=== PATIENT | female | born 1960 | race Caucasian/White ===

== ENCOUNTER 2017-03-12 09:36 | Emergency (ER) | payer OTHER ==
[2017-03-12 10:47] VITALS: BP 136/91
--- NOTE | 2017-03-12 10:54 | UC ---
Knee Pain HPI - HPI Summary HPI Summary: 56 yo female slipped and fell on left knee yesterday C/O left knee>>>left hip pain able to bear wt with limp denies other injury - History of Current Complaint Chief Complaint: UCLowerExtremity Stated Complaint: FELL KNEE INJURY Time Seen by Provider: 03/12/17 10:31 Hx Obtained From: Patient Onset/Duration: Sudden Onset, Lasting Hours Severity Initially: Moderate Severity Currently: Moderate Pain Intensity: 7 Pain Scale Used: 0-10 Numeric Character: Dull, Aching, Throbbing Aggravating Factor(s): Movement, Weight Bearing Alleviating Factor(s): Rest Associated Signs And Symptoms: Positive: Swelling Able to Bear Weight: Yes - Allergies/Home Medications Allergies/Adverse Reactions: Allergies Allergy/AdvReac Type Severity Reaction Status Date / Time No Known Allergies Allergy Verified 03/12/17 10:47 PMH/Surg Hx/FS Hx/Imm Hx Previously Healthy: Yes - peripheral vascular disease Endocrine History: Dyslipidemia Cardiovascular History: Hypertension Other History Of: Negative For: Anticoagulant Therapy - Surgical History Surgical History: Yes Surgery Procedure, Year, and Place: uterine ablation, tubal ligation, bladder sling, tonsillectomy, tubal reanastamosis, hernia surgery x3-inguinal and hiatal-mesh, placenta abruption--, rectoceal and cystoceal, whipple. procedure 06/15/12. 11/30/2014 - RIGHT SIDED GROIIN CATH WHICH SHOWED 60% BLOCKAGE BUT THEY CAN'T DO ANYTING BECAUSE OF HER PRINZMETAL'S ANGINA. - Family History Known Family History: Positive: Hypertension - Social History Alcohol Use: None Substance Use Type: None Smoking Status (MU): Heavy Every Day Tobacco Smoker Type: Cigarettes Amount Used/How Often: 1 PPD Length of Time of Smoking/Using Tobacco: 20+ YEARS Have You Smoked in the Last Year: Yes Household Exposure Type: Cigarettes - Immunization History Most Recent Influenza Vaccination: unknown Most Recent Tetanus Shot: years ago Most Recent Pneumonia Vaccination: years ago Review of Systems Constitutional: Negative Skin: Negative Eyes: Negative ENT: Negative Respiratory: Negative Cardiovascular: Negative Gastrointestinal: Negative Genitourinary: Negative Motor: Negative Neurovascular: Negative Musculoskeletal: Arthralgia Neurological: Negative Psychological: Negative Is Patient Immunocompromised?: No All Other Systems Reviewed And Are Negative: Yes Physical Exam Triage Information Reviewed: Yes Appearance: Well-Appearing, No Pain Distress, Well-Nourished Vital Signs: Initial Vital Signs Temp 99 F 03/12/17 10:36 Pulse 75 03/12/17 10:36 Resp 18 03/12/17 10:36 BP 136/91 03/12/17 10:36 Pulse Ox 98 03/12/17 10:36 Vital Signs Reviewed: Yes Eyes: Positive: Conjunctiva Clear ENT: Negative: Nasal congestion, Nasal drainage, Trismus, Muffled voice, Hoarse voice Neck: Positive: Supple Respiratory: Positive: Lungs clear, Normal breath sounds, No respiratory distress, No accessory muscle use Cardiovascular: Positive: RRR, No Murmur Musculoskeletal: Positive: Other: - left hip- tender greater troch left knee- tender patella/tender medial joint line/pain with full extension/effusion Neurological: Positive: Alert Skin Exam: Normal Diagnostics - Radiology No standard instances Xray Interpretation: No Acute Changes Radiology Interpretation Completed By: Radiologist Knee Pain Course/Dx - Differential Dx/Diagnosis Provider Diagnoses: left knee sprain? torn meniscus. left hip contusion Discharge - Discharge Plan Condition: Stable Disposition: HOME Patient Education Materials: Swollen Knee Joint (ED) Forms: *Work Release Referrals: Irina Gutierrez MD [Medical Doctor] - As Soon As Possible Additional Instructions: rest elevate ice knee immobilizer see orthopedist in follow up continue advil for pain
--- NOTE | 2017-03-12 11:36 | RAD ---
HISTORY: Left knee injury COMPARISONS: None VIEWS: 4, Frontal, lateral, axial, and oblique views of the left knee FINDINGS: BONE DENSITY: There is diffuse osteopenia. BONES: There is no displaced fracture. JOINTS: There is mild tricompartment osteoarthritis. There is a small suprapatellar joint effusion. There is no lipohemarthrosis ALIGNMENT: There is no dislocation. SOFT TISSUES: Unremarkable. OTHER FINDINGS: None. IMPRESSION: 1. OSTEOPENIA. 2. MILD OSTEOARTHRITIS. 3. JOINT EFFUSION. 4. NO ACUTE OSSEOUS INJURY. IF SYMPTOMS PERSIST, RECOMMEND REPEAT IMAGING
--- NOTE | 2017-03-12 11:40 | RAD ---
HISTORY: Fall, with hip pain COMPARISONS: None VIEWS: 3, Frontal view of the pelvis with frontal and frog-leg views of the left hip FINDINGS: BONE DENSITY: Normal. BONES: There is no displaced fracture. JOINTS: There is mild osteoarthritis of the hips and SI joints. ALIGNMENT: There is no dislocation. SOFT TISSUES: Unremarkable. OTHER FINDINGS: None. IMPRESSION: NO RADIOGRAPHIC EVIDENCE FOR HIP FRACTURE. X-RAYS MAY BE NEGATIVE WITH NONDISPLACED HIP FRACTURE, IF THERE IS PERSISTENT CLINICAL CONCERN, RECOMMEND CONSIDERATION OF MRI. IN THE SETTING OF CONTRAINDICATION TO MRI OR LIMITATION IN EMERGENT ACCESS TO MRI, CT WOULD BE SUGGESTED.
== END 2017-03-12 12:06 | disposition home or self-care (01) ==
LOC: UCEAST 09:36
DX: S83.92XA Sprain of unspecified site of left knee, initial encounter (principal); S70.02XA Contusion of left hip, initial encounter; F17.210 Nicotine dependence, cigarettes, uncomplicated; W01.0XXA Fall on same level from slipping, tripping and stumbling without subsequent striking against object, initial encounter; Y92.9 Unspecified place or not applicable; I73.9 Peripheral vascular disease, unspecified; E78.5 Hyperlipidemia, unspecified; I10 Essential (primary) hypertension; I20.1 Angina pectoris with documented spasm
CPT/HCPCS: 99213; G0463

== ENCOUNTER 2017-04-12 14:59 | Emergency (ER) | payer OTHER ==
[2017-04-12 16:07] LABS: ABS Basophils 0.1 10^3/ul (0-0.2); ABS Eosinophils 0.2 10^3/ul (0-0.6); ABS Lymphocytes 1.9 10^3/ul (1.0-4.8); ABS Monocytes 0.6 10^3/ul (0-0.8); ABS Neutrophils 7.2 10^3/ul (1.5-7.7); ABS Nucleated RBC 0 10^3/ul; Eosinophil % 2.3 % (0-6); Hematocrit 35 % (35-47); Hemoglobin 11.6 g/dl (12.0-16.0); Lymphocyte % 19.1 % (25-47); Mean Corpuscular HGB Conc 33 g/dl (31-36); Mean Corpuscular Hemoglobin 28 pg (27-31); Mean Corpuscular Volume 85 fL (80-97); Mean Platelet Volume 9 um3 (7.4-10.4); Nucleated Red Blood Cells % 0; Platelet Count 231 10^3/ul (150-450); Red Blood Count 4.13 10^6/ul (4.0-5.4); Red Cell Distribution Width 15 % (10.5-15); White Blood Count 10.2 10^3/ul (3.5-10.8)
[2017-04-12 16:18] LABS: INR 1.01 (0.77-1.02)
[2017-04-12 16:24] LABS: EGFR Non-African American 70.6 (>60)
--- NOTE | 2017-04-12 16:25 | RAD ---
Indication: Dizziness. CT of the brain was performed without IV contrast. Ventricular structures are midline. No midline shift is noted. The extra-axial spaces are unremarkable. There is no evidence of intracranial mass or hemorrhage. No other high or low density lesions are identified. Air-fluid level is noted in the left maxillary sinus as well as mucosal thickening of the left posterior ethmoid air cells. Mastoid air cells are unremarkable. Bony calvaria is unremarkable. IMPRESSION: No intracranial mass or hemorrhage is noted.
[2017-04-12 17:06] LABS: Urine Appearance Cloudy; Urine Blood Negative (Negative); Urine Color Amber; Urine Ketones Trace (Negative); Urine Protein Negative (Negative); Urine Specific Gravity 1.027 (1.010-1.030); Urine Urobilinogen Negative (Negative)
--- NOTE | 2017-04-12 18:06 | RAD ---
Indication: Dizziness. Single frontal view of the chest performed at 1620 hours was reviewed. Comparison is made with previous exam dated June 21, 2015. No mediastinal shift is noted. Heart is of normal size and configuration. Lung chaney appear clear. IMPRESSION: NO ACTIVE CARDIOPULMONARY DISEASE IS NOTED.
[2017-04-12 19:29] VITALS: BP 113/91
[2017-04-12] MEDS ORDERED: O ndansetron ODT 4MG 2TAB PRPK 4 MG PAK PO ONE (19:35)
--- NOTE | 2017-04-12 23:19 | ED ---
Steve Jeffery Stephanie, scribed for Felicita Leal MD on 04/12/17 at 1558 . Dizziness - HPI Summary HPI Summary: The pt is a 56 y/o F presenting to the ED with c/o dizziness that began today at 15:00. The pt arrived via EMS, found supine on bathroom floor at work ( [employer]). Pt states today she started feeling hot flashes, lightheadedness, productive cough, nausea, diaphoresis, and dizziness, then went to bathroom where she had excessive diarrhea, then had SOB. Pt called for help, and was assisted to ground by witnesses. Pt denies loss of consciousness. - History Of Current Complaint Chief Complaint: EDDizziness Stated Complaint: DIZZINESS,WEAKNESS Time Seen by Provider: 04/12/17 15:38 Hx Obtained From: Patient, Family/Frog Farmer - Onset/Duration: Still Present Timing: Constant Character: Unable To Describe - "like I can pass out" Aggravating Factor(s): Nothing Alleviating Factor(s): Nothing Associated Signs And Symptoms: Positive: Diarrhea, Other: - hot flashes, lightheadedness, productive cough, nausea, diaphoresis, SOB, dizziness - Allergies/Home Medications Allergies/Adverse Reactions: Allergies Allergy/AdvReac Type Severity Reaction Status Date / Time isosorbide [From Imdur] AdvReac Headache Verified 04/12/17 15:32 Home Medications: Home Medications Diltiazem XR EXTEND Releas(NF) [Cartia XR (NF)] 240 mg PO DAILY 04/12/17 [ History Confirmed 04/12/17] Glimepiride (NF) 2 mg PO DAILY 04/12/17 [History Confirmed 04/12/17] Sucralfate SUSP (NF) [Carafate SUSP (NF)] 10 ml PO BID 04/12/17 [History Confirmed 04/12/17] Ursodiol CAP* [Actigall CAP 300 MG*] 500 mg PO BID 04/12/17 [History Confirmed 04/12/17] PMH/Surg Hx/FS Hx/Imm Hx Endocrine/Hematology History: Reports: Hx Diabetes - type2, Other Endocrine/ Hematological Disorders - necrobiosis lipoidica Denies: Hx Anticoagulant Therapy, Hx Systemic Lupus Erythematosus, Hx Thyroid Disease Cardiovascular History: Reports: Hx Angina, Hx Deep Vein Thrombosis - portal vein clot,coumadin, Hx Hypertension, Other Cardiovascular Problems/Disorders - ANGINA Denies: Hx Congestive Heart Failure, Hx Pacemaker/ICD Respiratory History: Reports: Hx Asthma - STILL USES OCCASIONAL INHALER, Hx Chronic Bronchitis, Hx Chronic Obstructive Pulmonary Disease (COPD), Other Respiratory Problems/Disorders - COPD GI History: Reports: Hx Gastroesophageal Reflux Disease, Other GI Disorders - Diarrhea for years (Cancer symptoms) Denies: Hx Ulcer History: Reports: Other Problems/Disorders - UTI, Cystocele Denies: Hx Dialysis, Hx Renal Disease Musculoskeletal History: Reports: Other Musculoskeletal History - DJD,ARTHRITIS Denies: Hx Rheumatoid Arthritis Sensory History: Reports: Hx Contacts or Glasses Opthamlomology History: Reports: Hx Contacts or Glasses Neurological History: Denies: Hx Dementia, Hx Seizures Psychiatric History: Denies: Hx Substance Abuse - Cancer History Cancer Type, 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 procedure 06/15/12. 11/30/2014 - RIGHT SIDED GROIIN CATH WHICH SHOWED 60% BLOCKAGE BUT THEY CAN'T DO ANYTING BECAUSE OF HER PRINZMETAL'S ANGINA. - Immunization History Date of Tetanus Vaccine: UTD Date of Influenza Vaccine: NONE Infectious Disease History: No Infectious Disease History: Denies: Hx Hepatitis, Hx Human Immunodeficiency Virus (HIV), Traveled Outside the [place] in Last 30 Days - Family History Known Family History: Positive: Unknown, Hypertension - Social History Occupation: Employed Part-time Lives: With Family Alcohol Use: None Substance Use Type: Reports: None Smoking Status (MU): Heavy Every Day Tobacco Smoker Type: Cigarettes Amount Used/How Often: 1 PPD Length of Time of Smoking/Using Tobacco: 20+ YEARS Have You Smoked in the Last Year: Yes Review of Systems Positive: Skin Diaphoresis, Other - hot flashes. Negative: Fever Positive: Shortness Of Breath, Cough - productive Positive: Diarrhea, Nausea Neurological: Other - lightheadedness, dizziness All Other Systems Reviewed And Are Negative: Yes Physical Exam - Summary Physical Exam Summary: Appearance: Ill-appearing, pale, moderate pain distress, Well-nourished Skin: Warm, bruises on L inner thigh, bruises on L forearm, not orthostatic Head: Normal Head/Face inspection Eyes: Conjunctiva clear ENT: Normal inspection Neck: Supple, no nodes, no JVD. Respiratory: Lungs clear, Normal breath sounds, no respiratory distress Cardio: RRR, No murmur, pulses normal, brisk capillary refill Abdomen: soft, nontender Bowel sounds: present Musculoskeletal: Strength Intact/ ROM intact. No calf tenderness. No edema. Neuro: Alert, muscle tone normal, facial symmetry, speech normal, sensory/motor intact Psychological: Normal Triage Information Reviewed: Yes Vital Signs On Initial Exam: Initial Vitals Temp Pulse Resp BP Pulse Ox 97.9 F 72 16 101/72 97 04/12/17 15:18 04/12/17 15:18 04/12/17 15:18 04/12/17 15:18 04/12/17 15:18 Vital Signs Reviewed: Yes Diagnostics - Vital Signs Vital Signs Temp Pulse Resp BP Pulse Ox 04/12/17 15:30 71 16 106/72 97 04/12/17 15:24 71 101/72 98 04/12/17 15:22 76 93 04/12/17 15:18 97.9 F 72 16 101/72 97 - Laboratory Result Diagrams: 04/12/17 15:57 04/12/17 15:57 Lab Statement: Any lab studies that have been ordered have been reviewed, and results considered in the medical decision making process. - Radiology CXR Xray Interpretation: No Acute Changes Radiology Interpretation Completed By: Radiologist - NO ACTIVE CARDIOPULMONARY DISEASE IS NOTED. - CT Brain CT Interpretation: No Acute Changes CT Interpretation Completed By: Radiologist - No intracranial mass or hemorrhage is noted. - EKG 15:45 Cardiac Rate: NL EKG Rhythm: Sinus Rhythm - [address] Segment: Non-Specific Ectopy: None EKG Interpretation: nml AVIVCT, nml QTc, and axis is zero EKG Comparison: Other - no change compared to 11/24/14 Dizzy Course/Dx - Diagnoses Provider Diagnoses: Dizziness Discharge - Discharge Plan Condition: Stable Disposition: HOME Prescriptions: Ondansetron ODT TAB* [Zofran 4 MG Odt TAB*] 4 mg PO Q6H PRN #20 tab.odt PRN Reason: Vomiting Patient Education Materials: Dizziness (ED) Referrals: Lily Everett MD [Primary Care Provider] - 1 Day Additional Instructions: We have given you a copy of your labs and xray and CT brain. You were influenza swab negative. We did not find a serious cause of your symptoms today. Please follow up with your doctor in 1-2 days. Return to the ER if you have any new or worsening symptoms. The documentation as recorded by the Steve vargas Stephanie accurately reflects the service I personally performed and the decisions made by , Felicita Leal MD.
== END 2017-04-12 19:43 | disposition home or self-care (01) ==
LOC: ED 14:59
DX: R42 Dizziness and giddiness (principal); F17.210 Nicotine dependence, cigarettes, uncomplicated
CPT/HCPCS: 36415; 70450; 71045; 80053; 80307; 80320; 81003; 81015; 82550; 83605; 83735; 83880; 84443; 84484; 85025; 85379; 85610; 86140; 87086; 87502; 93005; 99283; A9270-GY; G0480

== ENCOUNTER 2018-01-20 18:28 | Emergency (ER) | payer OTHER ==
[2018-01-20 19:23] VITALS: BP 135/85
[2018-01-20] MEDS ORDERED: traMADol TAB* 50 MG PO ONE ×2 (20:53→22:14)
--- NOTE | 2018-01-20 20:54 | UC ---
Upper Extremity HPI - HPI Summary HPI Summary: 57 y/o female presents to the urgent care c/o RT upper extremity pain s/p fall on ice around 1730pm. Pt reports pain she tried to catch herself w/ her RT arm and she landed on her RT elbow and wrist. She has pain is the RT shoulder, elbow and wrist. Pain is worse in the RT elbow since she can't move it . Pain is sharp 8/10 radiating to the forearm and fingers, associated w/ swelling on both elbow and wrist. Mild numbness finger 4th and 5th. sharp and she is unable to move her RT elbow. 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 She can't take any Tylenol or NSAID for pain. She states she unusually takes is Tramadol for pain. pt denies fever, THAO, dizziness, chest pain, abdominal pain, N/V/D - History of Current Complaint Chief Complaint: UCUpperExtremity Stated Complaint: R ARM INJURY Time Seen by Provider: 01/20/18 20:51 Hx Obtained From: Patient Hx Last Menstrual Period: operations specialists ?: No Onset/Duration: Sudden Onset, Lasting Hours - 4 hrs, Still Present Severity Initially: Moderate Severity Currently: Moderate Pain Intensity: 8 Pain Scale Used: 0-10 Numeric Location Of Pain: Is Discrete @ - RT shoulder, RT elbow and RT wrist, Radiates To - fingers Character: Sharp - mainly in the Rt elbow Aggravating Factor(s): Movement - Rt elbow, Lifting - RT elbow, Flexion - RT elbow and RT wrist, Extension, Internal/External Rotation - RT elbow, Abduction - RT elbow Alleviating Factor(s): Ice, Rest Associated Signs And Symptoms: Positive: Swelling, Numbness/Tingling - over finger. Negative: Bruising Related History: Dominant Hand Right - Risk Factors Non-Orthopedic Risk Factor: Negative Septic Arthritis Risk Factor: Negative - Allergies/Home Medications Allergies/Adverse Reactions: Allergies Allergy/AdvReac Type Severity Reaction Status Date / Time isosorbide [From Imdur] AdvReac Headache Verified 01/20/18 19:23 Home Medications: Home Medications Albuterol HFA INHALER* [Ventolin HFA Inhaler*] 1 puff INH Q4H PRN 01/20/18 [ History Confirmed 01/20/18] PMH/Surg Hx/FS Hx/Imm Hx Previously Healthy: Yes Endocrine History: Diabetes Cardiovascular History: Cardiac Disease Other Cardiovascular History: printzmetal angina, Other Cancer History: Dudenal cancer, Carcinoid tumor s/p whipple procedure Other History Of: Negative For: Anticoagulant Therapy - Surgical History Surgical History: Yes Surgery Procedure, Year, and Place: uterine ablation, tubal ligation, bladder sling, tonsillectomy, tubal reanastamosis, hernia surgery x3-inguinal and hiatal-mesh, placenta abruption--, rectocele and cystocele,. Whipple procedure 06/15/12. Biliary stone cholelithiasis. 11/30/2014 - RIGHT SIDED GROIN CATH WHICH SHOWED 60% BLOCKAGE BUT THEY CAN'T DO ANYTHING BECAUSE OF HER PRINZMETAL'S ANGINA. - Family History Known Family History: Positive: Cardiac Disease, Hypertension, Diabetes - Social History Occupation: Employed Full-time Lives: With Family Alcohol Use: None Substance Use Type: None Smoking Status (MU): Heavy Every Day Tobacco Smoker Type: Cigarettes Amount Used/How Often: 1 PPD Length of Time of Smoking/Using Tobacco: 20+ YEARS Have You Smoked in the Last Year: Yes Household Exposure Type: Cigarettes - Immunization History Most Recent Influenza Vaccination: unknown Most Recent Tetanus Shot: years ago Most Recent Pneumonia Vaccination: years ago Review of Systems All Other Systems Reviewed And Are Negative: Yes Constitutional: Positive: Negative Skin: Positive: Other - RT elbos swelling and RT wrist swelling Eyes: Positive: Negative ENT: Positive: Negative Respiratory: Positive: Negative Cardiovascular: Positive: Negative Gastrointestinal: Positive: Negative Genitourinary: Positive: Negative Motor: Positive: Negative Neurovascular: Positive: Negative Musculoskeletal: Positive: Decreased ROM - RT elbow and RT wrist, Other: - RT shoulder, RT elbow and RT wrist pain s/p fall on ice Neurological: Positive: Numbness - over the Rt fingers Psychological: Positive: Negative Is Patient Immunocompromised?: No Physical Exam - Summary Physical Exam Summary: Vital Signs Reviewed: Yes General: well developed, well nourished thin female sitting in the examining table w / mild pain distress/o any apparent distress. Eyes: Positive: Conjunctiva Clear - PERRLA, EOMI, ENT: Positive: Normal ENT inspection, Hearing grossly normal, Pharynx normal, TMs normal - B/L, Uvula midline Neck: Positive: Supple, Nontender, No Lymphadenopathy Respiratory: Positive: Chest non-tender, Lungs clear, Normal breath sounds, No respiratory distress, No accessory muscle use Cardiovascular: Positive: RRR, No Murmur, Pulses Normal, Brisk Capillary Refill Abdomen Description: Positive: Nontender, No Organomegaly, Soft. Negative: CVA Tenderness (R), CVA Tenderness (L) Bowel Sounds: Positive: Present Musculoskeletal: Positive: Strength Intact, The R shoulder is without obvious asymmetry or deformity when compared to the L shoulder. posterior shoulder w/o ecchymosis and bruising, no crepitus. No bony deformity or prominence of humeral head. No erythema, warmth. No Point Tenderness to palpation over the clavicle, or scapula. positive tenderness over Acromioclavicular joint and humeral head with mild swelling, Limited ROM due to pain. No axillary tenderness or lymphadenopathy. RT Elbow: The L elbow is w/o any deformity, w/ moderate soft tissue swelling over the lateral epicondyle when compared to the R elbow. No obvious surface trauma, no ecchymosis, Point tenderness to palpation of the lateral or medial epicondyle, olecranon,and radial head. No epicondylar or axillary lymphadenopathy. Decreased ROM due to pain, Pt holding her elbow w/ other arm. Muscle strength WNL. the R wrist is without obvious asymmetry or deformity when compared to the L wrist. No surface trauma, open wounds, or obvious deformity. No overlying erythema or warmth. No bony crepitus. Soft tissu swelling over the lateral side of the wrist. Point tenderness over the thenar eminence and ventral side of wrist. No scaphoid fullness or tenderness to direct palpation or axial load. Decreased ROM due to pain. Motor/sensory function of ulnar, radial, median nerves intact. Ulnar and radial pulses intact. Neurological: Positive: Alert, Muscle Tone Normal Psychological Exam: Normal Skin Exam: Normal Triage Information Reviewed: Yes Vital Signs: Initial Vital Signs Temp 98.4 F 01/20/18 19:16 Pulse 63 01/20/18 19:16 Resp 16 01/20/18 19:16 BP 135/85 01/20/18 19:16 Pulse Ox 97 01/20/18 19:16 Upper Extremity Course/Dx - Course Course Of Treatment: 57 y/o female presents to the urgent care c/o RT upper extremity pain s/p fall on ice around 1730pm. Pt reports pain she tried to catch herself w/ her RT arm and she landed on her RT elbow and wrist. She has pain is the RT shoulder, elbow and wrist. Pain is worse in the RT elbow since she can't move it . Pain is sharp 8/10 radiating to the forearm and fingers, associated w/ swelling on both elbow and wrist. Mild numbness finger 4th and 5th. sharp and she is unable to move her RT elbow. 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 She can't take any Tylenol or NSAID for pain. She states she unusually takes is Tramadol for pain. pt denies fever, THAO, dizziness, chest pain, abdominal pain, N/V/D. Hx obtained. RT shoulder, Elbow and wrist ordered, Impression: RT shoulder no fracture observed , RT elbow: non displaced fracture of radial head. RT wrist no fracture observed , but possible widening of radius and ulna. Final X-ray reports still pending. Pt given Tramadol by the nurse for pain. Pt tolerated well medication. Pt's symptoms discussed w/ DR Beach. She recomended Orthopedic counsult. I called w/ [facility] percussion welding machine operator Dr Loco and discussed X-ray findings and Pt's symptoms and he recommended to immobilized Pt's RT wrist w/ a wrist splint and the RT elbow w/ a Shoulder sling and to f/u w/ him tomorrow in his office. Results discussed with Pt. Pt given a dose of Tramadol to take home and Rx same medication to alleviate symptoms. Pt's RT elbow immobilized with shoulder sling and RT wrist w/ a thumb spica. Pt neurovascular WNL after splin placement by nurse. PT strongly advised to f/u with Orthopedic DR Loco tomorrow for further evaluation and treatment. also advised RICE, and D/C instructions explained. Pt understood and agreed with plan of care. Pt left the clinic ambulating, hemodynamically stable, A&OX3 and feeling better. - Differential Dx/Diagnosis Differential Diagnosis/HQI/PQRI: Contusion, Fracture (Open), Fracture (Closed), Strain, Sprain, Other - dislocation Provider Diagnosis: Elbow fracture, right, Sprain of wrist, right, Shoulder pain, acute - Physician Notification/Consults Discussed Patient Care With: Joel Loco - Dr Loco recommended to immobilize Pt's elbow w/ a shoulder sling and RT wrist w/ a wrist splin and f/u in his office tomorrow. Discharge - Sign-Out/Discharge Documenting (check all that apply): Patient Departure - D/C home All imaging exams completed and their final reports reviewed: No - Discharge Plan Condition: Stable Disposition: HOME Prescriptions: traMADol TAB* [Ultram*] 50 mg PO Q6HR PRN #12 tab MDD 400mg /day PRN Reason: Pain Patient Education Materials: Elbow Fracture (ED), Wrist Sprain (ED) Forms: *Work Release Referrals: Joel Loco MD [Medical Doctor] - 1 Day Lily Everett MD [Primary Care Provider] - 2 Days Additional Instructions: 1-Please take tramadol PO as directed to alleviate pain and swelling. 2-Please apply ice, keep your elbow immobilized with the shoulder sling, and your RT wrist immobilized w/ the splint, Avoid any heavy lifting, movement 3- Please f/u with Orthopedic DR Loco tomorrow for further evaluation and treatment of your elbow fracture and wrist sprain. He is expecting - Billing Disposition and Condition Condition: STABLE Disposition: Home
--- NOTE | 2018-01-21 09:03 | ED ---
Progress - Progress Note Progress Note: Radiologist reading of x-rays from January 20, 2018 read as no fracture of the right shoulder. A comminuted slightly depressed intra-articular fracture of the right radial head. And diastasis in the right wrist. [facility] January 20, 2018 spoke with the orthopedist lactation nurse and the patient was splinted both at the right wrist and elbow on the plan is for follow-up today January 21, 2018. Therefore. there are no discrepancies Course/Dx - Course Course Of Treatment: 57 y/o female presents to the urgent care c/o RT upper extremity pain s/p fall on ice around 1730pm. Pt reports pain she tried to catch herself w/ her RT arm and she landed on her RT elbow and wrist. She has pain is the RT shoulder, elbow and wrist. Pain is worse in the RT elbow since she can't move it . Pain is sharp 8/10 radiating to the forearm and fingers, associated w/ swelling on both elbow and wrist. Mild numbness finger 4th and 5th. sharp and she is unable to move her RT elbow. 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 She can't take any Tylenol or NSAID for pain. She states she unusually takes is Tramadol for pain. pt denies fever, THAO, dizziness, chest pain, abdominal pain, N/V/D. Hx obtained. RT shoulder, Elbow and wrist ordered, Impression: RT shoulder no fracture observed , RT elbow: non displaced fracture of radial head. RT wrist no fracture observed , but possible widening of radius and ulna. Final X-ray reports still pending. Pt given Tramadol by the nurse for pain. Pt tolerated well medication. Pt's symptoms discussed w/ DR Beach. She recomended Orthopedic counsult. I called w/ [facility] lactation nurse Dr Loco and discussed X-ray findings and Pt's symptoms and he recommended to immobilized Pt's RT wrist w/ a wrist splint and the RT elbow w/ a Shoulder sling and to f/u w/ him tomorrow in his office. Results discussed with Pt. Pt given a dose of Tramadol to take home and Rx same medication to alleviate symptoms. Pt's RT elbow immobilized with shoulder sling and RT wrist w/ a thumb spica. Pt neurovascular WNL after splin placement by nurse. PT strongly advised to f/u with Orthopedic DR Loco tomorrow for further evaluation and treatment. also advised RICE, and D/C instructions explained. Pt understood and agreed with plan of care. Pt left the clinic ambulating, hemodynamically stable, A&OX3 and feeling better. - Diagnoses Provider Diagnoses: Elbow fracture, right, Sprain of wrist, right, Shoulder pain, acute Discharge - Sign-Out/Discharge Documenting (check all that apply): Patient Departure All imaging exams completed and their final reports reviewed: Yes - Discharge Plan Condition: Stable Disposition: HOME Prescriptions: traMADol TAB* [Ultram*] 50 mg PO Q6HR PRN #12 tab MDD 400mg /day PRN Reason: Pain Patient Education Materials: Elbow Fracture (ED), Wrist Sprain (ED) Forms: *Work Release Referrals: Joel Loco MD [Medical Doctor] - 1 Day Lily Everett MD [Primary Care Provider] - 2 Days Additional Instructions: 1-Please take tramadol PO as directed to alleviate pain and swelling. 2-Please apply ice, keep your elbow immobilized with the shoulder sling, and your RT wrist immobilized w/ the splint, Avoid any heavy lifting, movement 3- Please f/u with Orthopedic DR Loco tomorrow for further evaluation and treatment of your elbow fracture and wrist sprain. He is expecting - Billing Disposition and Condition Condition: STABLE Disposition: Home
== END 2018-01-20 22:35 | disposition home or self-care (01) ==
LOC: UCEAST 18:28
DX: S52.571A Other intraarticular fracture of lower end of right radius, initial encounter for closed fracture (principal); S63.501A Unspecified sprain of right wrist, initial encounter; W00.0XXA Fall on same level due to ice and snow, initial encounter; Y92.9 Unspecified place or not applicable; M25.511 Pain in right shoulder; Z85.068 Personal history of other malignant neoplasm of small intestine; Z86.012 Personal history of benign carcinoid tumor; Z90.49 Acquired absence of other specified parts of digestive tract; Z88.8 Allergy status to other drugs, medicaments and biological substances; F17.210 Nicotine dependence, cigarettes, uncomplicated
CPT/HCPCS: 99213; A9270-GY; G0463

== ENCOUNTER → 2018-07-12 19:43 | Emergency (ER) | payer OTHER ==
[~2018-07-12 19:43] MED LIST: HYDROmorphone INJ1* 1 MG/ML SYRINGE IV SLOW PU ONE; Iodixanol* (CONTRAST) 320 MG/ML 100 ML SDV IV ONE; Morphine 4 MG/ML VIAL (1 ml) 4 MG/ML VIAL IV ONE; NS 0.9% 1000 ML** 1,000 ML IV SCH; Ondansetron INJ* 2 MG/ML VIAL IV ONE; fentaNYL* 50 MCG/ML 2 ML VIAL (100 MCG VIAL) ONE
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
[2018-07-12] MEDS: fentaNYL* 50 MCG/ML 2 ML VIAL (100 MCG VIAL) IV SLOW PU ONE ×2 (20:08→21:15)
[2018-07-12 21:09] LABS: ABS Basophils 0.1 10^3/ul (0-0.2); ABS Eosinophils 0.2 10^3/ul (0-0.6); ABS Lymphocytes 1.7 10^3/ul (1.0-4.8); ABS Monocytes 0.8 10^3/ul (0-0.8); ABS Neutrophils 6.9 10^3/ul (1.5-7.7); Eosinophil % 1.9 %; Hematocrit 29 % (35-47); Hemoglobin 9.4 g/dL (12.0-16.0); Lymphocyte % 17.9 %; Mean Corpuscular HGB Conc 32 g/dL (31-36); Mean Corpuscular Hemoglobin 26 pg (27-31); Mean Corpuscular Volume 81 fL (80-97); Platelet Count 176 10^3/uL (150-450); Red Blood Count 3.64 10^6 /uL (3.70-4.87); Red Cell Distribution Width 16 % (10.5-15); White Blood Count 9.7 10^3/uL (3.5-10.8)
[2018-07-12 21:15] LABS: INR 1.09 (0.82-1.09)
[2018-07-12 21:28] LABS: ALT 10 U/L (7-52); AST 17 U/L (13-39); Albumin 3.6 g/dL (3.2-5.2); Albumin/Globulin Ratio 1.5 (1-3); Alkaline Phosphatase 67 U/L (34-104); BUN/Creatinine Ratio 23.7 (8-20); Blood Urea Nitrogen 18 mg/dL (6-24); CO2 Carbon Dioxide 22 mmol/L (22-32); Calcium 8.5 mg/dL (8.6-10.3); EGFR African American 94.3 (>60); EGFR Non-African American 77.9 (>60); Globulin 2.4 g/dL (2-4); Glucose 179 mg/dL (70-100); Potassium 3.6 mmol/L (3.5-5.0); Sodium 139 mmol/L (135-145)
[2018-07-12 21:33] LABS: Anion Gap 4 mmol/L (2-11); Chloride 113 mmol/L (101-111)
[2018-07-12 21:55] LABS: Alcohol < 10 mg/dL (<10)
[2018-07-12 21:58] LABS: Urine Appearance Clear; Urine Bilirubin Negative (Negative); Urine Blood Negative (Negative); Urine Color Yellow; Urine Glucose Negative (Negative); Urine Ketones Negative (Negative); Urine Nitrite Negative (Negative); Urine Protein Negative (Negative); Urine Specific Gravity 1.056 (1.010-1.030); Urine Urobilinogen Negative (Negative)
[2018-07-12 23:27] VITALS: BP 130/81
== END | disposition short-term general hospital (02) ==
LOC: ED 19:43
DX: S30.0XXA Contusion of lower back and pelvis, initial encounter (principal); S52.502A Unspecified fracture of the lower end of left radius, initial encounter for closed fracture; V86.59XA Driver of other special all-terrain or other off-road motor vehicle injured in nontraffic accident, initial encounter; Y92.9 Unspecified place or not applicable; R06.02 Shortness of breath; M50.321 Other cervical disc degeneration at C4-C5 level; M48.02 Spinal stenosis, cervical region; K57.30 Diverticulosis of large intestine without perforation or abscess without bleeding; C7A.010 Malignant carcinoid tumor of the duodenum; E11.9 Type 2 diabetes mellitus without complications; Z90.49 Acquired absence of other specified parts of digestive tract; F17.210 Nicotine dependence, cigarettes, uncomplicated
CPT/HCPCS: 25605; 36415; 70450; 71045; 71260; 72125; 74177; 80053; 80320; 81003; 83605; 84484; 85025; 85610; 93005; 96361; 96374; 96375; 99284; G0480; J1170; J2270; J2405; J3010; Q9967